=== PATIENT | male | born 1990 | race Caucasian/White ===

== ENCOUNTER 2017-02-05 12:46 | Emergency (ER) | payer OTHER ==
[2017-02-05 12:56] VITALS: BP 124/78; RESP 16; TEMP 97.9; O2SAT 100
--- NOTE | 2017-02-05 15:02 | ED PDOC ---
HPI: Psych/Substance Abuse Time Seen by Provider: 02/05/17 13:50 Chief Complaint (Nursing): Psychiatric Evaluation Chief Complaint (Provider): dominick mcneil. ED Caveat: Acuity of Condition Additional Complaint(s): 3yo M in ED alled EMS for SI. pt states the he has had suicidal thoughts intermittent for a couple fo months-state states that today he walked to the bridge where he would have jumped off to commit suicide. pt states she has been taking xanax Rx by his pmd has not seen a mental health counselor. pt denies suicidal ideation. Past Medical History Reviewed: Historical Data, Nursing Documentation, Vital Signs Vital Signs: Last Vital Signs Temp 97.9 F 02/05/17 12:52 Pulse 101 H 02/05/17 12:52 Resp 16 02/05/17 12:52 BP 124/78 02/05/17 12:52 Pulse Ox 100 02/05/17 12:52 - Medical History PMH: No Chronic Diseases - Family History Family History: States: No Known Family Hx - Allergies Allergies/Adverse Reactions: Allergies Allergy/AdvReac Type Severity Reaction Status Date / Time No Known Allergies Allergy Verified 02/05/17 12:52 Review of Systems ROS Statement: Except As Marked, All Systems Reviewed And Found Negative Psych: Positive for: Suicidal ideation Physical Exam - Reviewed Nursing Documentation Reviewed: Yes Vital Signs Reviewed: Yes - Physical Exam Appears: Positive for: Well, Non-toxic, No Acute Distress Head Exam: Positive for: ATRAUMATIC, NORMAL INSPECTION, NORMOCEPHALIC Skin: Positive for: Normal Color, Warm, DRY Eye Exam: Positive for: EOMI, Normal appearance, PERRL Cardiovascular/Chest: Positive for: Regular Rate, Rhythm Respiratory: Positive for: CNT, Normal Breath Sounds Gastrointestinal/Abdominal: Positive for: Normal Exam, Bowel Sounds, Soft Neurologic/Psych: Positive for: Alert, Oriented, Mood/Affect (depressed) - Laboratory Results Result Diagrams: 02/05/17 15:10 02/05/17 15:10 - ECG O2 Sat by Pulse Oximetry: 100 - Progress ED Course And Treament: pt placed on 1:1 and will get crisis evaluation Medical Decision Making Medical Decision Making: PT IS CLEARED BY DOMINICK FOR ANXIETY UNDER MIECELLI, mdPT IS [place] AND SAFE FOR D /C AT THIS TINME. PT IS WITH MOTHER WHO WILL TAKE HIM HOME. Disposition - Clinical Impression Clinical Impression: Anxiety - Patient ED Disposition Is Patient to be Admitted: No Counseled Patient/Family Regarding: Studies Performed, Diagnosis, Need For Followup - Disposition Disposition: Routine/Home Disposition Time: 16:08 Condition: STABLE Instructions: Anxiety (ED) Forms: [facility] ED School/Work Excuse
[2017-02-05 15:15] LABS: RBC URINE 2 /hpf (0-3); URINE BILIRUBIN NEGATIVE (NEGATIVE); URINE BLOOD NEGATIVE (NEGATIVE); URINE COLOR STRAW (YELLOW); URINE GLUCOSE (UA) NEG (Normal); URINE KETONE NEGATIVE (NEGATIVE); URINE LEUKOCYTE ESTERASE NEG Leu/uL (Negative); URINE PROTEIN NEGATIVE (NEGATIVE); URINE UROBILINOGEN 0.2-1.0 mg/dL (0.2-1.0); WBC URINE < 1 /hpf (0-5)
[2017-02-05 15:25] LABS: BASO % 0.4 % (0.0-2.0); EOS % 0.6 % (0.0-4.0); HEMATOCRIT 45.4 % (35.0-51.0); LYMPH # 1.3 K/uL (1.0-4.3); LYMPH % 19.7 % (20.0-40.0); MEAN CELL VOLUME 87.7 fl (80.0-94.0); MEAN CORPUSCULAR HEMOGLOBIN 29.2 pg (27.0-31.0); MEAN CORPUSCULAR HGB CONC 33.3 g/dL (33.0-37.0); MEAN PLATELET VOLUME 8.1 fl (7.2-11.7); MONO # 0.5 K/uL (0.0-0.8); MONO % 6.6 % (0.0-10.0); NEUT % 72.7 % (50.0-75.0); RED CELL DISTRIBUTION WIDTH 12.9 % (11.5-14.5); WHITE BLOOD COUNT 6.8 K/uL (4.8-10.8)
[2017-02-05 15:39] LABS: ALB/GLOB RATIO 1.3 (1.0-2.1); ALCOHOL SERUM < 10 mg/dl (0-10); ALKALINE PHOSPHATASE 57 U/L (38-126); ALT/SGPT 18 U/L (21-72); AST/SGOT 21 U/L (17-59); BILIRUBIN,TOTAL 0.3 mg/dl (0.2-1.3); BLOOD UREA NITROGEN 9 mg/dl (9-20); CALCIUM 10.2 mg/dL (8.4-10.2); CARBON DIOXIDE 28 mmol/L (22-30); CHLORIDE 103 mmol/L (98-107); GFR AFRICAN-AMERICAN > 60; GLUCOSE,RANDOM 89 mg/dL (75-110); SODIUM 147 mmol/l (132-148); TOTAL PROTEIN 8.4 G/DL (6.3-8.2)
[2017-02-05 16:48] VITALS: PULSE 87
== END 2017-02-05 16:47 | disposition home or self-care (01) ==
LOC: H.ER 12:46
DX: R45.851 Suicidal ideations (principal); F41.9 Anxiety disorder, unspecified; Z00.8 Encounter for other general examination